=== PATIENT | female | born 1935 | race Caucasian/White ===

== ENCOUNTER → 2023-11-22 11:04 | Outpatient (REF) | payer MEDICARE, OTHER, SELFPAY ==
[2023-11-22 12:34] LABS: Vitamin D, 25-OH*** 44.4 ng/mL (30-80)
[2023-11-22 14:57] LABS: Vitamin B12 254 pg/ml (239-931)
== END ==
LOC: OLABN 11:04
PROVIDERS: ATTENDING PHYSICIAN Student in an Organized Health Care Education/Training Program
DX: F03.C0 Unspecified dementia, severe, without behavioral disturbance, psychotic disturbance, mood disturbance, and anxiety (principal); E55.9 Vitamin D deficiency, unspecified
CPT/HCPCS: 36415; 82306; 82607

== ENCOUNTER → 2024-04-24 11:24 | Outpatient (REF) | payer MEDICARE, OTHER, SELFPAY ==
[2024-04-24 12:41] LABS: ALT (SGPT) 13 U/L (0-35); AST (SGOT) 30 U/L (14-36); Albumin 3.9 g/dl (3.5-5.0); Alkaline Phosphatase 88 U/L (38-126); Blood Urea Nitrogen 17 mg/dl (7-17); Calcium 9.5 mg/dl (8.4-10.2); Carbon Dioxide 27 mmol/L (22-30); Chloride 104 mmol/L (98-107); Glucose 74 mg/dl (70-99); Magnesium 1.9 mg/dl (1.6-2.3); Potassium 3.3 mmol/L (3.5-5.1); Sodium 139 mmol/L (135-145); Total Bilirubin 0.8 mg/dl (0.2-1.3); Total Protein 6.9 g/dl (6.3-8.2); eGFR > 60.00
[2024-04-24 13:03] LABS: TSH 7.31 uIU/ml (0.47-4.68)
[2024-04-24 13:09] LABS: % Basophils 0.5 % (0-2); % Eosinophils 1.6 % (0-6); % Immature Granulocytes 0.2 % (0-0.5); % Monocytes 7.5 % (1.7-9.3); % Neutrophils 54.2 % (42.2-75.2); Absolute Eosinophils 0.1 10^3/uL (0-0.7); Absolute Monocytes 0.6 10^3/uL (0.1-0.6); Absolute Neutrophils 4.5 10^3/uL (1.4-6.5); Hematocrit 36.7 % (37.0-47.0); Hemoglobin 12.7 g/dL (12.0-16.0); Mean Corp Hgb Conc. 34.6 g/dL (33.0-37.0); Mean Corpuscular Hgb 32.2 pg (27.0-31.0); Mean Corpuscular Volume 92.9 fL (81.0-99.0); Mean Platelet Volume 9.9 fL (7.4-10.4); Nucleated Red Blood Cells % 0 %; Platelet Count 286 10^3/uL (130-400); Red Blood Cell Count 3.95 10^6/uL (4.20-5.40); Red Cell Dist. Width 13.5 % (11.5-14.5); White Blood Cell Count 8.2 10^3/uL (4.8-10.8)
== END ==
LOC: OLABN 11:24
PROVIDERS: ATTENDING PHYSICIAN Student in an Organized Health Care Education/Training Program
DX: E03.9 Hypothyroidism, unspecified (principal); F03.C0 Unspecified dementia, severe, without behavioral disturbance, psychotic disturbance, mood disturbance, and anxiety
CPT/HCPCS: 80053; 83735; 84443; 85025

== ENCOUNTER → 2024-06-05 10:51 | Outpatient (REF) | payer MEDICARE, OTHER, SELFPAY ==
[2024-06-05 13:01] LABS: Free T4 0.83 ng/dl (0.78-2.19)
[2024-06-05 13:15] LABS: TSH 1.67 uIU/ml (0.47-4.68)
== END ==
LOC: OLABN 10:51
PROVIDERS: ATTENDING PHYSICIAN Student in an Organized Health Care Education/Training Program
DX: E03.9 Hypothyroidism, unspecified (principal)
CPT/HCPCS: 36415; 84439; 84443